=== PATIENT | female | born 1935 | race Caucasian/White ===

== ENCOUNTER 2017-02-07 19:13 | Emergency (ER) | payer MEDICARE ==
[2017-02-07] MEDS ORDERED: Aspirin Low Dose CHEW TAB* 81 MG PO ONE (21:27)
[2017-02-07] MEDS ORDERED: NS 0.9% 1000 ML* 1,000 ML IV SCH (21:30)
[2017-02-07 21:46] LABS: Hematocrit 44 % (35-47); Hemoglobin 14.2 g/dl (12.0-16.0); Mean Corpuscular HGB Conc 32 g/dl (31-36); Mean Corpuscular Hemoglobin 28 pg (27-31); Mean Corpuscular Volume 87 fL (80-97); Mean Platelet Volume 9 um3 (7.4-10.4); Red Cell Distribution Width 14 % (10.5-15); White Blood Count 6.9 10^3/ul (3.5-10.8)
[2017-02-07 22:02] LABS: Albumin 4.1 g/dL (3.2-5.2); BUN/Creatinine Ratio 17.1 (8-20); C Reactive Protein 1.64 mg/L (< 5.00); Calcium 9.3 mg/dL (8.6-10.3); EGFR African American 93.5 (>60); EGFR Non-African American 72.7 (>60); Globulin 2.9 g/dL (2-4); Magnesium 2.2 mg/dL (1.9-2.7); Total Bilirubin 0.4 mg/dL (0.2-1.0)
[2017-02-07 22:05] LABS: Troponin I 0.03 ng/mL (<0.04)
--- NOTE | 2017-02-07 22:06 | RAD ---
INDICATION: Hypertension COMPARISON: Chest x-ray dated April 30, 2016 TECHNIQUE: Single AP portable view of the chest was obtained. FINDINGS: Image quality is compromised due to the relative inferiority of a portable chest x-ray. The heart and mediastinum exhibit normal size and contour. Faint calcified atherosclerosis is noted at the arch of the aorta. The lungs are grossly clear. There is no evidence of a large pleural effusion. Visualized bones are normal for the patient's age. IMPRESSION: No radiographic evidence for acute cardiopulmonary abnormality on this portable chest x-ray.
[2017-02-07 22:09] LABS: Urine Bilirubin Negative (Negative); Urine Glucose Negative (Negative); Urine Nitrite Negative (Negative)
[2017-02-07 22:34] LABS: TSH (Thyroid Stimulating Horm) 1.54 mcIU/mL (0.34-5.60)
[2017-02-07] MEDS ORDERED: amLODIPine TAB* 5 MG PO ONE (22:57)
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
[2017-02-08 02:20] VITALS: BP 118/65
== END 2017-02-08 02:20 ==
LOC: ED 19:13
DX: I10 Essential (primary) hypertension (principal); R51 Headache
CPT/HCPCS: 36415; 71010; 80053; 81003; 82550; 82553; 83605; 83690; 83735; 83880; 84443; 84484; 85025; 85610; 85730; 86140; 93005; 99283; A9270-GY

== ENCOUNTER 2017-05-21 10:05 | Day surgery (SDC) | payer MEDICARE ==
[~2017-05-21 10:05] MED LIST: Buffered Lidocaine 0.9% SYRIN* 5 ML/SYR SYRINGE INTRADERM ONE; Scopolamine 1.5 mg* PATCH TRANSDERM ONE
[2017-05-21] MEDS ORDERED: Buffered Lidocaine 0.9% SYRIN* 5 ML/SYR SYRINGE ONE (10:16)
[2017-05-21] MEDS ORDERED: Scopolamine 1.5 mg* PATCH ONE (10:16)
[2017-05-21] MEDS ORDERED: Midazolam* 1 MG/ML 2 ML VIAL (2 MG) ONE (11:43)
[2017-05-21] MEDS ORDERED: Propofol* 10 MG/ML 20 ML BTL IV PUSH ONE (11:55)
[2017-05-21 12:32] VITALS: BP 132/74
[2017-05-24] MEDS ORDERED: Scopolomine PATCH Remove* 1 NOTE MISC PATCH OFF ONE (06:00)
== END 2017-05-21 13:47 | disposition home or self-care (01) ==
LOC: OR 10:05
PROVIDERS: ATTEND Internal Medicine
DX: I34.0 Nonrheumatic mitral (valve) insufficiency (principal); R06.02 Shortness of breath; I71.2 Thoracic aortic aneurysm, without rupture; I25.10 Atherosclerotic heart disease of native coronary artery without angina pectoris; I25.2 Old myocardial infarction; E03.9 Hypothyroidism, unspecified; E78.5 Hyperlipidemia, unspecified
CPT/HCPCS: 93312; 93325; A9270-GY; J2250; J2704

== ENCOUNTER 2017-11-24 10:06 | Emergency (ER) | payer MEDICARE ==
[2017-11-24] MEDS ORDERED: Acetaminophen TAB* 325 MG PO ONE (11:26)
[2017-11-24] MEDS ORDERED: Acetaminophen TAB* 325 MG ONE (11:30)
[2017-11-24 11:49] LABS: ABS Basophils 0 10^3/ul (0-0.2); ABS Eosinophils 0 10^3/ul (0-0.6); ABS Lymphocytes 0.9 10^3/ul (1.0-4.8); ABS Monocytes 0.4 10^3/ul (0-0.8); ABS Neutrophils 4.1 10^3/ul (1.5-7.7); ABS Nucleated RBC 0 10^3/ul; Eosinophil % 0.2 % (0-6); Hematocrit 35 % (35-47); Hemoglobin 11.4 g/dl (12.0-16.0); Lymphocyte % 16.5 % (25-47); Mean Corpuscular HGB Conc 33 g/dl (31-36); Mean Corpuscular Hemoglobin 26 pg (27-31); Mean Corpuscular Volume 80 fL (80-97); Mean Platelet Volume 7.9 um3 (7.4-10.4); Nucleated Red Blood Cells % 0.2; Platelet Count 219 10^3/ul (150-450); Red Blood Count 4.36 10^6/ul (4.0-5.4); Red Cell Distribution Width 17 % (10.5-15); White Blood Count 5.4 10^3/ul (3.5-10.8)
[2017-11-24 11:56] LABS: INR 1.06 (0.77-1.02)
[2017-11-24 12:06] LABS: EGFR Non-African American 76.1 (>60)
--- NOTE | 2017-11-24 12:24 | RAD ---
Indication: Chest pain. Previous myocardial infarction. Respiratory disease. Comparison: March 20, 2017 CT. Technique: Upright AP 1150 hours Report: Elevated lung volumes. Minimal prominence of the interstitial markings. No focal pulmonary lesion, compelling alveolar consolidation, pleural effusion, pneumothorax. Median sternotomy wires and prosthetic cardiac valve annulus new compared with the prior exam. Mild cardiomegaly. Unremarkable central pulmonary vasculature. Increased prominence of the aortic arch compared with the prior exam. IMPRESSION: 1. Stigmata of chronic obstructive pulmonary disease without evidence for an acute pulmonary process. 2. Increased prominence of the aortic arch. There is clinical concern for potential aortic dissection consider a CT angiogram for further assessment.
[2017-11-24] MEDS ORDERED: Iohexol 350* (CONTRAST) 500 ML MDV IV ONE (12:32)
--- NOTE | 2017-11-24 13:17 | RAD ---
INDICATION: Chest pain radiating to the back. Assess for aortic dissection. Widened mediastinum on chest radiograph of the same date. COMPARISON: Chest radiograph the same date and March 20, [address] TECHNIQUE: Multidetector CT images were obtained from the lung apices to the ischial tuberosities with 100 mL Omnipaque 350 IV contrast. Arterial phase of enhancement. No oral contrast administered. Multiplanar reformation including coronal and sagittal maximum intensity projection images and 3-D arterial volume rendering of the aorta and iliac arteries. CHEST REPORT: Mild bilateral apical pleural-parenchymal scarring. Negative for pleural effusion or pneumothorax. Postsurgical change of median sternotomy wires, ascending aorta aneurysm repair, and mitral valve replacement. 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 No jayashree contrast extravasation evident. Small volume of fluid in the anterior mediastinum and surrounding the ascending aortic arch is age indeterminate. Dissection of the thoracic aorta beginning at the distal arch distal to the origin of the LEFT subclavian artery and extending to the upper abdomen without involvement of the celiac axis or more distal abdominal visceral arteries. The false lumen is posterior and RIGHT lateral. Thrombosis of the false lumen proximally accounting for the widened mediastinum on chest radiograph. The distal aortic arch measures up to 4.4 cm diameter, the descending thoracic aorta at the level of the main pulmonary artery measures up to 4.1 cm diameter, the distal descending segment at the level of the diaphragm measures up to 3.1 cm diameter. Negative for thoracic lymphadenopathy. Negative for suspicious thoracic osseous lesions. CHEST IMPRESSION: 1. 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 2. Postsurgical change of median sternotomy wires, ascending aorta aneurysm repair, and mitral valve replacement. 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 No jayashree contrast extravasation evident. Small volume of fluid in the anterior mediastinum and surrounding the ascending aortic arch is age indeterminate. ABDOMEN PELVIS REPORT: 5 mm cyst or hemangioma at the LEFT lateral hepatic segment without change. Unremarkable partially distended gallbladder, pancreas, spleen. Negative for CT abnormality of the upper GI or small bowel. Moderately severe diverticulosis of the sigmoid colon without acute inflammatory change. Negative for ascites, free air, or significant hernias. Normal adrenal glands. Symmetric cortical enhancement of the kidneys. Normal variant extrarenal pelves. Negative for hydronephrosis or focal renal lesions. Unremarkable nondilated ureters and distended urinary bladder as well as the anteverted uterus and adnexal regions. Negative for lymphadenopathy. Aortic dissection extending to the upper abdomen as described in the chest report. Negative for dissection or aneurysm of the infrarenal abdominal aorta. Physiologic distention of the IVC. Negative for retroperitoneal hematoma. 0.8 cm lucent lesion at the RIGHT margin of the L1 vertebral body unchanged compared with a remote CT from 2004 without concern. Negative for suspicious focal osseous lesions. ABDOMEN PELVIS IMPRESSION: Aortic dissection extending to the upper abdomen as described in the chest report. Negative for dissection or aneurysm of the infrarenal abdominal aorta. Results discussed with Dr. Kumar, 11/24/2017 12:51 PM EDT
[2017-11-24 13:45] VITALS: BP 145/84
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
[2017-11-24 13:52] LABS: Urine Appearance Clear; Urine Blood Negative (Negative); Urine Color Yellow; Urine Ketones Negative (Negative); Urine Protein Negative (Negative); Urine Specific Gravity 1.028 (1.010-1.030); Urine Urobilinogen Negative (Negative)
== END 2017-11-24 13:44 | disposition short-term general hospital (02) ==
LOC: ED 10:06
DX: I71.01 Dissection of thoracic aorta (principal); R07.89 Other chest pain; E07.9 Disorder of thyroid, unspecified; I25.2 Old myocardial infarction; I10 Essential (primary) hypertension; E78.00 Pure hypercholesterolemia, unspecified; F41.9 Anxiety disorder, unspecified; Z85.828 Personal history of other malignant neoplasm of skin; Z88.5 Allergy status to narcotic agent
CPT/HCPCS: 36415; 71045; 71275; 74174; 80053; 81003; 84484; 85025; 85610; 85730; 93005; 99284; A9270-GY; Q9967

== ENCOUNTER 2022-09-11 13:22 | Observation (INO) ==
[2022-09-11 14:18] LABS: Albumin 4.3 g/dL (3.2-5.2); Calcium 9.1 mg/dL (8.6-10.3); Potassium 4.4 mmol/L (3.5-5.0); Total Bilirubin 0.6 mg/dL (0.2-1.0)
[2022-09-11 14:25] LABS: Albumin/Globulin Ratio 1.7 (1-3); Creatinine, Serum 0.88 mg/dL (0.51-0.95); Globulin 2.5 g/dL (2-4); Total Protein 6.8 g/dL (6.4-8.9); eGFR CKD-EPI 63.2 (>60)
[2022-09-11] MEDS ORDERED: NS 0.9% 1000 ml BAG 1,000 ML IV SCH (17:30)
[2022-09-11] MEDS ORDERED: Artificial Tear OPHTH.OINT 3.5 GM BOTH EYES PRN (18:43)
[2022-09-11 18:46] LABS: Hepatitis B Surface Antigen Nonreactive (Nonreactive)
[2022-09-11] MEDS ORDERED: Simethicone SUSP ORALSYR 66.66 MG/ML PO PRN (18:46)
[2022-09-11 18:54] LABS: Activated Partial Thrombo Time 30.3 seconds (26.0-38.0); INR 1.18 (0.88-1.18)
[2022-09-11 19:03] LABS: Hepatitis B Surface Ab Not Immune (Immune); Hepatitis C Antibody Negative (Negative)
[2022-09-11] MEDS: Enoxaparin 40 MG/0.4 ML SYR SUBCUT SCH (21:55)
[2022-09-11] MEDS: Psyllium PAK PO SCH (21:56)
[2022-09-11] MEDS: Aspirin EC 81 mg TAB.EC (enteric coated) PO SCH (21:58)
[2022-09-12 05:57] LABS: Red Blood Count 2.81 10^6 /uL (3.70-4.87)
[2022-09-12 06:11] LABS: Albumin 3.5 g/dL (3.2-5.2); Albumin/Globulin Ratio 1.9 (1-3); Calcium 8.4 mg/dL (8.6-10.3); Creatinine, Serum 0.86 mg/dL (0.51-0.95); Globulin 1.8 g/dL (2-4); Potassium 3.7 mmol/L (3.5-5.0); Total Bilirubin 0.5 mg/dL (0.2-1.0); Total Protein 5.3 g/dL (6.4-8.9); Uric Acid 4.7 mg/dL (2.3-6.6); eGFR CKD-EPI 64.9 (>60)
[2022-09-12 06:40] LABS: Hematocrit 26 % (35-47); Hemoglobin 7.7 g/dL (12.0-16.0); Mean Corpuscular HGB Conc 30 g/dL (31-36); Mean Corpuscular Hemoglobin 28 pg (27-31); Mean Corpuscular Volume 91 fL (80-97); Mean Platelet Volume 10.4 fL (7.4-10.4); Platelet Count 73 10^3/uL (150-450); Red Cell Distribution Width 18 % (10-15); White Blood Count 103.7 10^3/uL (3.5-10.8)
[2022-09-12 06:51] LABS: Anisocytosis 1+; Polychromasia 1+
[2022-09-12 06:55] LABS: ABS Basophils 0.2 10^3/ul (0-0.2); ABS Lymphocytes 2.4 10^3/ul (1.0-4.8); ABS Monocytes 3.4 10^3/ul (0-0.8); ABS Neutrophils 97.7 10^3/ul (1.5-7.7); ABS Nucleated RBC 0.2 10^3/ul; Lymphocyte % 2.3 %; Nucleated Red Blood Cells % 0.2
[2022-09-12] MEDS ORDERED: NS 0.9% 1000 ml BAG 1,000 ML IV SCH (07:20)
[2022-09-12] MEDS ORDERED: Aspirin EC 81 mg TAB.EC (enteric coated) PO SCH (09:00)
[2022-09-12] MEDS: Psyllium PAK PO SCH ×2 (09:06→21:21)
[2022-09-12] MEDS ORDERED: Lidocaine 2% PF 5 ML VIAL IV ONE (11:12)
[2022-09-12 18:42] LABS: Beta 2 Microglobulin 3.38 mcg/mL
[2022-09-12] MEDS: Aspirin EC 81 mg TAB.EC (enteric coated) PO SCH (21:21)
[2022-09-12] MEDS: Enoxaparin 40 MG/0.4 ML SYR SUBCUT SCH (21:23)
[2022-09-13 07:43] LABS: Hematocrit 27 % (35-47); Hemoglobin 8.4 g/dL (12.0-16.0); Mean Corpuscular HGB Conc 31 g/dL (31-36); Mean Corpuscular Hemoglobin 28 pg (27-31); Mean Corpuscular Volume 91 fL (80-97); Mean Platelet Volume 10.1 fL (7.4-10.4); Platelet Count 79 10^3/uL (150-450); Red Blood Count 2.97 10^6 /uL (3.70-4.87); Red Cell Distribution Width 17 % (10-15); White Blood Count 67.2 10^3/uL (3.5-10.8)
[2022-09-13 07:59] LABS: Albumin 3.5 g/dL (3.2-5.2); Albumin/Globulin Ratio 2.1 (1-3); Calcium 8.3 mg/dL (8.6-10.3); Creatinine, Serum 0.79 mg/dL (0.51-0.95); Globulin 1.7 g/dL (2-4); Total Bilirubin 0.5 mg/dL (0.2-1.0); Total Protein 5.2 g/dL (6.4-8.9); Uric Acid 4.1 mg/dL (2.3-6.6); eGFR CKD-EPI 71.9 (>60)
[2022-09-13 08:26] LABS: Anisocytosis 1+; Polychromasia 1+
[2022-09-13 08:27] LABS: ABS Basophils 0.1 10^3/ul (0-0.2); ABS Lymphocytes 2.7 10^3/ul (1.0-4.8); ABS Monocytes 3.5 10^3/ul (0-0.8); ABS Neutrophils 60.9 10^3/ul (1.5-7.7); Eosinophil % 0.1 %
[2022-09-13] MEDS: Psyllium PAK PO SCH (09:06)
[2022-09-13 11:22] VITALS: BP 149/71
[2022-09-13 17:49] LABS: BCR/ABL PCR Specimen Blood; BCR/ABL p210 Result see interpretation
[2022-09-14 08:33] LABS: Hematocrit 30 % (35-47); Hemoglobin 8.8 g/dL (12.0-16.0); Mean Corpuscular HGB Conc 30 g/dL (31-36); Mean Corpuscular Hemoglobin 27 pg (27-31); Mean Corpuscular Volume 91 fL (80-97); Red Blood Count 3.25 10^6 /uL (3.70-4.87); Red Cell Distribution Width 17 % (10-15); White Blood Count 121.7 10^3/uL (3.5-10.8)
[2022-09-14 08:34] LABS: Mean Platelet Volume 10.2 fL (7.4-10.4); Platelet Count 101 10^3/uL (150-450)
[2022-09-14 08:41] LABS: ABS Basophils 0.2 10^3/ul (0-0.2); ABS Eosinophils 0.2 10^3/ul (0-0.6); ABS Monocytes 2.5 10^3/ul (0-0.8); ABS Neutrophils 116.8 10^3/ul (1.5-7.7); ABS Nucleated RBC 0.1 10^3/ul; Eosinophil % 0.1 %; Lymphocyte % 1.6 %; Nucleated Red Blood Cells % 0.1
[2022-09-14 08:42] LABS: Macrocytosis 1+; Polychromasia 1+
[2022-09-14 14:57] LABS: AMLAF Result Summary Normal; AMLAF Specimen Body Fluid
[2022-09-15 11:08] LABS: BCR/ABL PCR Specimen Whole Blood; BCR/ABL p190 Result see interpretation
[2022-09-15 18:17] LABS: Specimen Type BONE MARROW EDTA
[2022-09-20 11:41] LABS: BM Result Summary Normal
== END 2022-09-13 14:15 | disposition home or self-care (01) ==
LOC: MEDTELE 13:22 → CHOA 13:22 → SUATTDRO 17:56 → MED 09-13 04:31
PROVIDERS: ADMIT Internal Medicine Hematology & Oncology; ATTEND Internal Medicine

== ENCOUNTER 2023-11-19 11:13 | Observation (INO) ==
[2023-11-19 12:41] LABS: Hematocrit 25.4 % (35-45); Hemoglobin 8.6 g/dL (11.5-14.3); Mean Corpuscular Hemoglobin 37.2 pg (27-33); Mean Corpuscular Hgb Conc 33.9 g/dL (31-36); Mean Corpuscular Volume 109.5 fL (80-97); Mean Platelet Volume 10.2 fL (7.5-11.2); Platelet Count 115 10^3/uL (150-450); Red Blood Count 2.32 10^6/uL (3.63-4.92); Red Cell Distribution Width 24.1 % (12-17); White Blood Count 9.9 10^3/uL (3.8-11.8)
[2023-11-19 12:43] LABS: INR 1.4 (0.83-1.13)
[2023-11-19] MEDS: cefTRIAXone 1 gm/50 mL D5W 1 GM/50 ML BAG IV ONE (12:52)
[2023-11-19 12:57] LABS: High Sens Troponin Baseline 10 pg/mL (<15)
[2023-11-19 13:36] LABS: ALT 35 U/L (7-52); AST 32 U/L (13-39); Albumin 4.1 g/dL (3.2-5.2); Albumin/Globulin Ratio 2.6 (1-3); Alkaline Phosphatase 64 U/L (35-149); Anion Gap 8 mmol/L (2-16); Blood Urea Nitrogen 17 mg/dL (6-24); CO2 Carbon Dioxide 21 mmol/L (22-32); Chloride 95 mmol/L (101-111); Creatinine, Serum 0.88 mg/dL (0.51-0.95); Globulin 1.6 g/dL (2-4); Glucose 125 mg/dL (70-100); Potassium 4.4 mmol/L (3.5-5.0); Sodium 124 mmol/L (135-145); Total Bilirubin 1.4 mg/dL (0.2-1.0); Total Protein 5.7 g/dL (6.4-8.9); eGFR CKD-EPI 62.8 (>60)
[2023-11-19 13:38] LABS: ABS Lymphocytes 0.4 10^3/uL (1.0-4.8); ABS Monocytes 0.8 10^3/uL (0.0-0.9); ABS Neutrophils 8.6 10^3/uL (1.5-7.6); ABS Nucleated RBC 0.03 10^3/ul; Lymphocyte % 4.5 %; Nucleated Red Blood Cells % 0.3 %/100WBC (0.0-0.8)
[2023-11-19] MEDS: Enoxaparin 60 MG/0.6 ML SYR SUBCUT ONE (14:03)
[2023-11-19] MEDS: Furosemide 20 mg/2 ml IV VIAL IV SLOW PU ONE (14:03)
[2023-11-19 14:21] LABS: High Sensitivity Troponin 1 Hr 9 pg/mL (<15)
[2023-11-19 15:42] LABS: % Iron Saturation 13 % (15-55); .Transferrin 223 mg/dL (203-362); Iron 40 ug/dL (50-212); Total Iron Binding Capacity 312 mcg/dL (250-450); Unsaturated Iron Binding 272 ug/dL
[2023-11-19 16:03] LABS: Folate 16.59 ng/mL (5.90-24.80)
[2023-11-19 16:04] LABS: Vitamin B12 > 1450 pg/mL (180-914)
[2023-11-19] MEDS ORDERED: Saline NASAL SPRAY 0.65% BTL BOTH NARES PRN (16:46)
[2023-11-19] MEDS: Enoxaparin 40 MG/0.4 ML SYR SUBCUT SCH (17:05)
[2023-11-19] MEDS ORDERED: Benzocaine (plain) Lozenge 15 MG MT PRN (17:31)
[2023-11-19 18:00] LABS: Osmolality Serum 260 mOsm/kg (275-295)
[2023-11-19 18:42] LABS: TSH Ultra Thyroid Stim Horm 2.34 mcIU/mL (0.34-5.60)
[2023-11-19] MEDS: Fluticasone NASAL SPRAY 50MCG 16 gm SPRAY BTL INTRANASAL SCH (19:59)
[2023-11-20] MEDS: Metoprolol Tartrate 5 mg VIAL 5 ml VIAL (1 mg/ml) IV ONE (02:51)
[2023-11-20] MEDS: Metoprolol Tartrate 5 mg VIAL 5 ml VIAL (1 mg/ml) IV PRN (02:58)
[2023-11-20 05:26] LABS: Hematocrit 22.3 % (35-45); Hemoglobin 7.7 g/dL (11.5-14.3); Mean Corpuscular Hemoglobin 37.2 pg (27-33); Mean Corpuscular Hgb Conc 34.4 g/dL (31-36); Mean Corpuscular Volume 108.1 fL (80-97); Red Blood Count 2.06 10^6/uL (3.63-4.92); Red Cell Distribution Width 24.3 % (12-17); White Blood Count 5.5 10^3/uL (3.8-11.8)
[2023-11-20 05:50] LABS: Calcium 7.6 mg/dL (8.6-10.3); Creatinine, Serum 0.77 mg/dL (0.51-0.95); Magnesium 2.1 mg/dL (1.9-2.7); Phosphorus 2.2 mg/dL (2.5-5.0); Potassium 3.8 mmol/L (3.5-5.0); eGFR CKD-EPI 73.7 (>60)
[2023-11-20 07:08] LABS: Mean Platelet Volume 9.4 fL (7.5-11.2); Platelet Count 83 10^3/uL (150-450)
[2023-11-20 07:09] LABS: ABS Lymphocytes 0.4 10^3/uL (1.0-4.8); ABS Monocytes 0.5 10^3/uL (0.0-0.9); ABS Neutrophils 4.6 10^3/uL (1.5-7.6); ABS Nucleated RBC 0.01 10^3/ul; Anisocytosis 2+; Eosinophil % 0.1 %; Lymphocyte % 7.7 %; Macrocytosis 1+; Nucleated Red Blood Cells % 0.3 %/100WBC (0.0-0.8); Polychromasia 2+
[2023-11-20] MEDS: Cholecalciferol (VIT D3) 1,000 unit TAB PO SCH (08:52)
[2023-11-20] MEDS: Aspirin EC 81 mg TAB.EC (enteric coated) PO SCH (08:54)
[2023-11-20] MEDS: Furosemide 20 mg/2 ml IV VIAL IV ONE (08:54)
[2023-11-20] MEDS: Potassium EFFERVES 25 meq TAB PO ONE (08:54)
[2023-11-20] MEDS: Benzocaine/Menthol LOZ MT PRN (11:23)
[2023-11-20] MEDS ORDERED: Phenol 1.4% Throat Spray BTL MT PRN (15:34)
[2023-11-20] MEDS: Psyllium PAK PO SCH (20:35)
[2023-11-21 06:12] LABS: Calcium 7.5 mg/dL (8.6-10.3); Creatinine, Serum 0.81 mg/dL (0.51-0.95); Magnesium 2.1 mg/dL (1.9-2.7); Potassium 4.1 mmol/L (3.5-5.0); eGFR CKD-EPI 69.3 (>60)
[2023-11-21 07:50] LABS: ABS Lymphocytes 0.5 10^3/uL (1.0-4.8); ABS Monocytes 0.6 10^3/uL (0.0-0.9); ABS Neutrophils 4.1 10^3/uL (1.5-7.6); ABS Nucleated RBC 0.01 10^3/ul; Anisocytosis 2+; Eosinophil % 0.2 %; Hematocrit 23.8 % (35-45); Lymphocyte % 9.1 %; Macrocytosis 1+; Mean Corpuscular Hemoglobin 37.1 pg (27-33); Mean Corpuscular Hgb Conc 33.7 g/dL (31-36); Mean Corpuscular Volume 109.9 fL (80-97); Mean Platelet Volume 10.2 fL (7.5-11.2); Nucleated Red Blood Cells % 0.1 %/100WBC (0.0-0.8); Platelet Count 80 10^3/uL (150-450); Polychromasia 2+; Red Blood Count 2.16 10^6/uL (3.63-4.92); Red Cell Distribution Width 24.2 % (12-17); White Blood Count 5.2 10^3/uL (3.8-11.8)
[2023-11-21] MEDS: Furosemide 20 mg/2 ml IV VIAL IV SLOW PU ONE ×2 (09:19→20:07)
[2023-11-21] MEDS: Metoprolol Tartrate 5 mg VIAL 5 ml VIAL (1 mg/ml) IV ONE (11:13)
[2023-11-21] MEDS: Potassium Phosphate IV 15 MMOL in NS 0.9% 250 ml 250 ML IVPB ONE (13:32)
[2023-11-21] MEDS: Iohexol 350 (CONTRAST) 500 ML MDV IV ONE (14:20)
[2023-11-22 06:32] LABS: Hematocrit 27.9 % (35-45); Hemoglobin 9.6 g/dL (11.5-14.3); Mean Corpuscular Hemoglobin 36.2 pg (27-33); Mean Corpuscular Hgb Conc 34.4 g/dL (31-36); Mean Corpuscular Volume 105.2 fL (80-97); Mean Platelet Volume 9.9 fL (7.5-11.2); Platelet Count 77 10^3/uL (150-450); Red Blood Count 2.65 10^6/uL (3.63-4.92); Red Cell Distribution Width 26.7 % (12-17); White Blood Count 6.7 10^3/uL (3.8-11.8)
[2023-11-22 07:02] LABS: Calcium 7.4 mg/dL (8.6-10.3); Creatinine, Serum 0.79 mg/dL (0.51-0.95); Magnesium 1.9 mg/dL (1.9-2.7); Phosphorus 2.7 mg/dL (2.5-5.0); eGFR CKD-EPI 71.5 (>60)
[2023-11-22 07:23] LABS: ABS Lymphocytes 0.5 10^3/uL (1.0-4.8); ABS Monocytes 0.6 10^3/uL (0.0-0.9); ABS Neutrophils 5.5 10^3/uL (1.5-7.6); ABS Nucleated RBC 0.02 10^3/ul; Eosinophil % 0.2 %; Lymphocyte % 7.2 %; Nucleated Red Blood Cells % 0.3 %/100WBC (0.0-0.8)
[2023-11-22] MEDS: Calcium Carbonate LIQ 1,250 mg/5 ml UDC PO ONE (17:09)
[2023-11-23 06:19] LABS: Hematocrit 26.6 % (35-45); Hemoglobin 9.1 g/dL (11.5-14.3); Mean Corpuscular Hemoglobin 36.2 pg (27-33); Mean Corpuscular Hgb Conc 34.3 g/dL (31-36); Mean Corpuscular Volume 105.6 fL (80-97); Red Blood Count 2.52 10^6/uL (3.63-4.92); Red Cell Distribution Width 25.8 % (12-17); White Blood Count 4.6 10^3/uL (3.8-11.8)
[2023-11-23 06:32] LABS: Calcium 7.6 mg/dL (8.6-10.3); Creatinine, Serum 0.74 mg/dL (0.51-0.95); Magnesium 1.9 mg/dL (1.9-2.7); Phosphorus 2.6 mg/dL (2.5-5.0); Potassium 3.8 mmol/L (3.5-5.0); eGFR CKD-EPI 77.3 (>60)
[2023-11-23] MEDS: Potassium Chlor 20 meq TAB.ER PO ONE (08:56)
[2023-11-23 09:17] LABS: Anisocytosis 2+; Macrocytosis 1+; Polychromasia 1+
[2023-11-23 09:18] LABS: ABS Lymphocytes 0.5 10^3/uL (1.0-4.8); ABS Monocytes 0.5 10^3/uL (0.0-0.9); ABS Neutrophils 3.5 10^3/uL (1.5-7.6); ABS Nucleated RBC 0.01 10^3/ul; Eosinophil % 0.4 %; Lymphocyte % 11.1 %; Nucleated Red Blood Cells % 0.1 %/100WBC (0.0-0.8)
[2023-11-23 09:19] LABS: Mean Platelet Volume 9.6 fL (7.5-11.2); Platelet Count 64 10^3/uL (150-450)
[2023-11-23 10:08] VITALS: BP 124/76
== END 2023-11-23 13:04 | disposition home or self-care (01) | DRG 291 ==
LOC: ED 11:13 → INTOOBSV 14:21 → EDHOLD 14:21 → SUATTDRO 14:21 → MEDTELE 16:29
PROVIDERS: ADMIT Family Medicine; ATTEND Internal Medicine